=== PATIENT | male | born 1980 | race Caucasian/White ===

== ENCOUNTER 2021-12-30 12:34 | Emergency (ER) | payer BC ==
[2021-12-30] MEDS ORDERED: ACETAMINOPHEN 500 MG TABLET (FP) PO ONE (12:48)
[2021-12-30] MEDS ORDERED: ACETAMINOPHEN 325 MG TABLET (FP) ONE (12:54)
[2021-12-30 13:09] VITALS: BP 138/84; PULSE 92; TEMP 98.8; BMI 27.4
== END 2021-12-30 13:26 | disposition home or self-care (01) ==
LOC: FER 12:34
DX: L72.0 Epidermal cyst (principal); R22.1 Localized swelling, mass and lump, neck
CPT/HCPCS: 99283-25

== ENCOUNTER 2023-01-05 10:29 | Emergency (ER) | payer BC ==
[2023-01-05 10:39] VITALS: BP 138/76; PULSE 98; RESP 18; TEMP 98.5; BMI 27.4
[2023-01-05] MEDS ORDERED: HYDROCORTISONE ACETATE 25 MG/SUPP.RECT PR ONE (11:26)
[2023-01-05] MEDS ORDERED: LIDOCAINE HCL 2% JELLY 10 ML CARTRIDGE PR ONE (11:27)
[2023-01-05] MEDS ORDERED: DOCUSATE SODIUM 100 MG CAPSULE (FP) PO ONE ×2 (11:28→11:37)
[2023-01-05] MEDS ORDERED: HYDROCORTISONE 2.5% TOPICAL CREAM 30 GM TUBE TP ONE (11:30)
[2023-01-05] MEDS ORDERED: LIDOCAINE HCL 2% JELLY 10 ML CARTRIDGE ONE (11:36)
[2023-01-05] MEDS ORDERED: IBUPROFEN 600 MG TABLET (FP) PO ONE ×2 (12:53→13:03)
[2023-01-05] MEDS ORDERED: ACETAMINOPHEN 325 MG TABLET (FP) PO ONE (12:53)
[2023-01-05] MEDS ORDERED: ACETAMINOPHEN 325 MG TABLET (FP) ONE (13:03)
== END 2023-01-05 15:12 | disposition home or self-care (01) ==
LOC: JER 10:29
DX: K64.9 Unspecified hemorrhoids (principal)
CPT/HCPCS: 99283-25